=== PATIENT | male | born 1975 | race Caucasian/White ===

== ENCOUNTER 2019-01-21 16:24 | Emergency (ER) | payer OTHER ==
[2019-01-21 16:32] VITALS: BP 139/95; PULSE 88; TEMP 97.9; BMI 29.2
--- NOTE | 2019-01-21 16:39 | PDOC ---
Rapid Medical Evaluation Chief Complaint: Alcohol intoxication Time Seen by Provider: 01/21/19 16:30 Medical Evaluation: 01/21/19 16:31 Pt c/o: etoh intox, requesting detox, no other complaints, had sz related to etoh, stroke Pt on brief exam: intox, elevated BP, noted rt foot drop Pt ordered for: labs, urine, iv, meds Pt to proceed to the ED Discharge Disposition - Diagnosis Alcohol abuse - Referrals - Patient Instructions - Post Discharge Activity
[2019-01-21] MEDS ORDERED: FOLIC ACID INJECTION - 1 MG, THIAMINE HCL 100 MG, MULTIVIT INJECTION ADULT 10 ML in SOD... IVPB ONE (16:41)
[2019-01-21 17:10] LABS: BASO % 0.3 % (0-2.0); EOS % 1.8 % (0-4.5); HEMATOCRIT 45.3 % (35.4-49); HEMOGLOBIN 15.5 GM/dL (11.7-16.9); LYMPH % 40.4 % (8-40); MCH 31.5 pg (25.7-33.7); MCHC 34.2 g/dl (32.0-35.9); MEAN CELL VOLUME 91.9 fl (80-96); MEAN PLT VOLUME 6.3 fl (7.5-11.1); MONO % 9.1 % (3.8-10.2); NEUT % 48.4 % (42.8-82.8); PLATELET COUNT 166 K/MM3 (134-434); RBC 4.92 M/mm3 (4.00-5.60); RDW 13.6 % (11.9-15.9)
[2019-01-21 17:11] LABS: URINE APPEARANCE CLEAR; URINE BILIRUBIN NEGATIVE (NEGATIVE); URINE COLOR YELLOW; URINE GLUCOSE (UA) NEGATIVE (NEGATIVE); URINE KETONE NEGATIVE (NEGATIVE); URINE LEUK ESTERASE NEGATIVE (NEGATIVE); URINE NITRITE NEGATIVE (NEGATIVE); URINE PROTEIN NEGATIVE (NEGATIVE); URINE UROBILINOGEN 0.2 mg/dL (0.2-1.0)
[2019-01-21 17:25] LABS: COCAINE, UR NEGATIVE ng/ml (CUTOFF=300); METHADONE, UR NEGATIVE ng/ml (CUTOFF=300); OPIATES, URI NEGATIVE ng/ml (CUTOFF=300); PHENCYCLIDINE,URINE NEGATIVE ng/ml (CUTOFF=25); URINE AMPHETAMINES NEGATIVE ng/ml (CUTOFF=500); URINE BARBITURATES NEGATIVE ng/ml (CUTOFF=200); URINE BENZODIAZEPINES NEGATIVE ng/ml (CUTOFF=200)
[2019-01-21 17:39] LABS: ALBUMIN 4.1 g/dl (3.4-5.0); BILIRUBIN,TOTAL 0.6 mg/dL (0.2-1); BLOOD UREA NITROGEN 4.4 mg/dL (7-18); CALCIUM 8.3 mg/dL (8.5-10.1); CREATININE 0.7 mg/dL (0.55-1.3); MAGNESIUM 1.8 mg/dL (1.8-2.4); TOT PROT 8.7 g/dl (6.4-8.2)
--- NOTE | 2019-01-21 17:55 | PDOC ---
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 last drink this AM w/ 2 large cans of beer. endorses usually drinking 8 beers a day for the past 2+ years. Denies coingestion and other ilicit drug use. Endorses current anxiety and restlessness. Denies n/v, AVH, diaphoresis. No active SI Past History - Past Medical History Allergies/Adverse Reactions: Allergies Allergy/AdvReac Type Severity Reaction Status Date / Time No Known Allergies Allergy Verified 01/21/19 20:37 Home Medications: Ambulatory Orders NK [No Known Home Medication] 01/21/19 CVA: Yes COPD: No Seizures: Yes (alcohol related) - Psycho Social/Smoking Cessation Hx Smoking History: Unknown if ever smoked Information on smoking cessation initiated: Yes Hx Alcohol Use: Yes (8 beers daily) Drug/Substance Use Hx: No Review of Systems - Review of Systems Able to Perform ROS?: Yes Comments:: 01/23/19 07:30 ROS: HEENT: Denies headache, lightheadedness, dizziness, changes in vision / hearing , diplopia, blurry vision. Denies sore throat, rhinorrhea. RESP: Denies SOB CARD: Denies chest pain GI: Denies N / V / D, abdominal pain PSYCH: Endorses mild anxiety and restlessness. NEURO: Denies numbness, tingling, weakness. Is the patient limited Lao proficient: No *Physical Exam - Vital Signs Last Vital Signs Temp Pulse Resp BP Pulse Ox 97.9 F 88 19 139/95 99 01/21/19 16:30 01/21/19 16:30 01/21/19 16:30 01/21/19 16:30 01/21/19 16:30 - Physical Exam Comments: 01/23/19 07:30 PE: VSS GEN: NAD, AAOx3, etoh on breath HEENT: NC/AT, EOMI, PERRLA. CN II-XII grossly intact. No facial asymmetry. Normal voice. Supple neck w/ FROM. CV: S1/S2, RRR, no m/r/g LUNG: CTAB, no wheezes, crackles, rales, rhonchi. GI: soft, ndnt, +BS, no guarding, no rebound. EXTREMITIES: No LE edema. No obvious deformities of all extremities. SKIN: warm, dry, normal turgor PSYCH: normal mood and affect, cooperative NEURO: 5/5 UE LE strength b/l. sensation to touch equal and intact throughout. No ataxia on finger to nose. Note patient has residual right sided deficits from prior CVA. ED Treatment Course - LABORATORY CBC & Chemistry Diagram: 01/21/19 16:54 01/21/19 16:54 - ADDITIONAL ORDERS Additional order review: Laboratory Results 01/21/19 01/21/19 01/21/19 16:54 16:54 16:54 Sodium 141 Potassium 4.0 Chloride 107 Carbon Dioxide 26 Anion Gap 9 BUN 4.4 L Creatinine 0.7 Est GFR (CKD-EPI)AfAm 132.09 Est GFR (CKD-EPI)NonAf 113.97 Random Glucose 104 Calcium 8.3 L Magnesium 1.8 Total Bilirubin 0.6 AST 93 H ALT 81 H Alkaline Phosphatase 91 Total Protein 8.7 H Albumin 4.1 Lipase 179 Urine Color Yellow Urine Appearance Clear Urine pH 5.0 Ur Specific [place] 1.004 L Urine Protein Negative Urine Glucose (UA) Negative Urine Ketones Negative Urine Blood Negative Urine Nitrite Negative Urine Bilirubin Negative Urine Urobilinogen 0.2 Ur Leukocyte Esterase Negative Opiates Screen Negative Methadone Screen Negative Barbiturate Screen Negative Phencyclidine Screen Negative Ur Amphetamines Screen Negative MDMA (Ecstasy) Screen Negative Benzodiazepines Screen Negative Cocaine Screen Negative U Marijuana (THC) Screen Negative 01/21/19 16:54 RBC 4.92 MCV 91.9 MCHC 34.2 RDW 13.6 MPV 6.3 L Neutrophils % 48.4 Lymphocytes % 40.4 H Monocytes % 9.1 Eosinophils % 1.8 Basophils % 0.3 Medical Decision Making - Medical Decision Making 01/21/19 17:49 MDM: 43M h/o etoh withdrawal presenting for detox CIWA 4 @ initial exam - labs - librium - [facility] 01/21/19 18:12 [facility] Discharge - Discharge Information Problems reviewed: Yes Clinical Impression/Diagnosis: Alcohol abuse Condition: Stable Disposition: HOME - Admission No - Follow up/Referral - Patient Discharge Instructions Patient Printed Discharge Instructions: DI for Alcohol Abuse Additional Instructions: You were evaluated at the Emergency Department You will be transported to [facility] for detox Immediately return to the Emergency Department if you experience any of the following: - seizures, change in behavior / mentation - chest pain, shortness of breath - ANYTHING that concerns you - Post Discharge Activity
[2019-01-21] MEDS ORDERED: FOLIC ACID 1 MG TABLET (FP) PO ONE (17:57)
[2019-01-21] MEDS ORDERED: chlordiazePOXIDE HCL 25 MG CAPSULE PO ONE (17:57)
[2019-01-21] MEDS ORDERED: LORazepam 2 MG/ML SDV VIAL ONE (18:07)
[2019-01-21] MEDS ORDERED: THIAMINE HCL 100 MG TABLET (FP) PO ONE (18:19)
[2019-01-21] MEDS ORDERED: chlordiazePOXIDE HCL 25 MG CAPSULE ONE (18:41)
[2019-01-21] MEDS ORDERED: FOLIC ACID 1 MG TABLET (FP) ONE (18:42)
[2019-01-21] MEDS ORDERED: THIAMINE HCL 100 MG TABLET (FP) ONE (18:42)
--- NOTE | 2019-01-21 18:58 | PDOC ---
Documentation entered by Brian Gutierrez SCRIBE, acting as scribe for Linda Roy DO. Linda Roy DO: This documentation has been prepared by the Matt jerez Daniel, SCRIBE, under my direction and personally reviewed by me in its entirety. I confirm that the documentation accurately reflects all work, treatment, procedures, and medical decision making performed by me. Attending Attestation - Resident Resident Name: Venkata Bobo - ED Attending Attestation I have performed the following: I have examined & evaluated the patient, The case was reviewed & discussed with the resident, I agree w/resident's findings & plan, Exceptions are as noted - HPI HPI: 01/21/19 18:34 The patient is a 43 year old male with a past medical history of anxiety, alcoholic withdrawal seizures, and CVA (2017 with residual right sided weakness ) here today requesting alcohol detox. The patient states that his last drink was this morning and had 2 beers. He states that he feels anxious and restless. Patient denies headache, lightheadedness. Denies fever, chills. Denies chest pain, shortness of breath. Denies nausea, vomiting, diarrhea, abdominal pain. Allergies: NKA - Physicial Exam PE: 01/21/19 18:52 Constitutional: +appears intoxicated. Awake, alert, oriented. No acute distress. Head: Normocephalic. Atraumatic Eyes: PERRL. EOMI. Conjunctivae are not pale. ENT: Mucous membranes are moist and intact. Posterior pharynx without exudates or erythema. Uvula midline. Neck: Supple. Full ROM. No lymphadenopathy. Cardiovascular: Regular rate. Regular rhythm. S1, S2 regular. Distal pulses are 2+ and symmetric. Pulmonary/Chest: No evidence of respiratory distress. Clear to auscultation bilaterally No wheezing, rales or rhonchi. Abdominal: Soft and non-distended. There is no tenderness. No rebound, guarding or rigidity. No organomegaly. No palpable masses. Good bowel sounds. Back: No CVA tenderness. Musculoskeletal: No edema. No cyanosis. No clubbing. Full range of motion in all extremities. Nocalf tenderness. Radial/pedal pulses are intact and 2+ bilaterally Skin: +healing scab on chin. Skin is warm and dry. No petechiae. No purpura. Neurological: +right sided residual weakness with no focal deficits. Alert and oriented to person, place, and time. Cranial nerves II-XII are grossly intact. Normal speech. No sensory deficits. Psychiatric: Good eye contact. Normal interaction, affect and behavior. - Medical Decision Making 01/21/19 18:56 I, Dr. Linda Roy, DO, attest that this document has been prepared under my direction and personally reviewed by me in its entirety. I further attest, that it accurately reflects all work, treatment, procedures and medical decision -making performed by me. a/p: 43yo male with alcohol intox - last drink this AM requesting detox -denies falls or head injury -hx of etoh withdrawal seizures -pt brought in by a friend for etoh withdrawal -denies si/hi -currently intox -received [facility] prior to [facility] - no tongue fasciculations or hand tremors -labs from [facility] ordered -will call [facility] for poss detox 01/21/19 19:00 there is a bed available at [facility] will dc to [facility] with security for detox
== END 2019-01-21 20:45 | disposition home or self-care (01) ==
LOC: JER 16:24
PROC: 3E033NZ Introduction of Analgesics, Hypnotics, Sedatives into Peripheral Vein, Percutaneous Approach (ICD-10-PCS; principal; 2019-01-21)
DX: F10.10 Alcohol abuse, uncomplicated (principal); F41.9 Anxiety disorder, unspecified
CPT/HCPCS: 36415; 80053; 80307; 81003; 83690; 83735; 85025; 99283-25; J7030

== ENCOUNTER 2019-01-21 19:37 | Inpatient (IN) | payer OTHER ==
[2019-01-21 20:53] VITALS: BMI 28.7
--- NOTE | 2019-01-21 23:15 | HP ---
CIWA Score Nausea/Vomitin-No Nausea/No Vomiting Muscle Tremors: 4-Moderate,w/Arms Extend Anxiety: 3 Agitation: 3 Paroxysmal Sweats: No Perspiration Orientation: 2-Disoriented Date<2 days Tacttile Disturbances: 0-None Auditory Disturbances: 0-None Visual Disturbances: 2-Mild Sensitivity Headache: 0-None Present CIWA-Ar Total Score: 14 - Admission Criteria OASAS Guidelines: Admission for Medically Managed Detox: Requires at least one of the followin. CIWA greater than 12 2. Seizures within the past 24 hours 3. Delirium tremens within the past 24 hours 4. Hallucinations within the past 24 hours 5. Acute intervention needed for co occurring medical disorder 6. Acute intervention needed for co occurring psychiatric disorder 7. Severe withdrawal that cannot be handled at a lower level of care (continued vomiting, continued diarrhea, abnormal vital signs) requiring intravenous medication and/or fluids 8. Patient presents the following: CIWA greater than 12 Admission Criteria Met: Admission criteria met Admitting History and Physical - Smoking History Smoking history: Unknown if ever smoked - Alcohol/Substance Use Hx Alcohol Use: Yes (8 beers daily) Admission ROS [facility] Chief Complaint: i need to clean up Allergies/Adverse Reactions: Allergies Allergy/AdvReac Type Severity Reaction Status Date / Time No Known Allergies Allergy Verified 01/21/19 20:37 History of Present Illness: 43 yo male etoh began age 13 problematic 6 y ago has been abstinent with rehab x 3 mos max - Ebola screening Have you traveled outside of the country in the last 21 days: No (N) Have you had contact with anyone from an Ebola affected area: No Do you have a fever: No - Review of Systems Constitutional: Changes in sleep EENT: reports: No Symptoms Reported Respiratory: reports: No Symptoms reported Cardiac: reports: No Symptoms Reported GI: reports: No Symptoms Reported : reports: No Symptoms Reported Musculoskeletal: reports: No Symptoms Reported Integumentary: reports: Other (laceration to chin sp fall) Endocrine: reports: No Symptoms Reported Hematology: reports: No Symptoms Reported Psychiatric: reports: Anxious, Depressed Patient History - Patient Medical History Hx Chronic Obstructive Pulmonary Disease (COPD): No Hx Cancer: No Hx Cardiac Disorders: No Hx Congestive Heart Failure: No Hx Hypertension: No Hx Hypercholesterolemia: No HX Cerebrovascular Accident: Yes (18 mos ago etoh related sp fall) Hx Seizures: Yes (alcohol related last 1 mo ago) Hx Dementia: No Hx Diabetes: No Hx Gastrointestinal Disorders: No Hx Liver Disease: No Hx Genitourinary Disorders: No Hx Sexually Transmitted Disorders: No Hx Renal Disease (ESRD): No Hx Thyroid Disease: No Hx Human Immunodeficiency Virus (HIV): No Hx Hepatitis C: No Hx Depression: Yes Hx Suicide Attempt: Yes ("debatable") - Patient Surgical History Past Surgical History: Yes Other Surgical History: sp cva craniotomy - Smoking Cessation Smoking history: Current every day smoker Have you smoked in the past 12 months: Yes Aproximately how many cigarettes per day: 5 Hx Chewing Tobacco Use: No Initiated information on smoking cessation: Yes 'Breaking Loose' booklet given: 01/21/19 - Substances abused Alcohol Substance route: Oral Frequency: Daily Amount used: 10 beers/ somedays more Age of first use: 13 Date of last use: 01/21/19 Admission Physical Exam [facility] - Vital Signs Vital Signs: Vital Signs - 24 hr 01/21/19 20:36 Temperature 97.5 F L Pulse Rate 97 H Respiratory 16 Rate Blood Pressure 153/87 - Physical General Appearance: Yes: Moderate Distress, Alcohol on Breath, Irritable, Anxious HEENTM: Yes: EOMI, Other (2cm annular lesion left chin) Respiratory: Yes: Chest Non-Tender, Lungs Clear, Normal Breath Sounds Neck: Yes: Within Normal Limits, No masses,lesions,Nodules Cardiology: Yes: Within Normal Limits, Regular Rhythm, Regular Rate, S1, S2 Abdominal: Yes: Within Normal Limits, Normal Bowel Sounds, Non Tender Back: Yes: Normal Inspection Extremities: Yes: Normal Capillary Refill, Normal Inspection Neurological: Yes: inspector outside production II-XII NML intact, Fully Oriented, Alert, Motor Strength 5/5, Normal Mood/Affect Integumentary: Yes: Mottled - Diagnostic (1) Alcohol withdrawal Current Visit: Yes Status: Acute (2) Alcohol withdrawal seizure Current Visit: Yes Status: Acute (3) Cerebrovascular accident (CVA) Current Visit: Yes Status: Acute Qualifiers: CVA mechanism: unspecified Qualified Code(s): I63.9 - Cerebral infarction, unspecified Cleared for Admission S - Detox or Rehab [facility] Level of Care: Medically Managed Breathalyzer - Breathalyzer Breathalyzer: 0 Urine Drug Screen - Test Device Lot number: [id number] Expiration date: 09/28/20 - Control Is test valid?: Yes - Results Drug screen NEGATIVE: No Urine drug screen results: BZO-Benzodiazepines Inpatient Rehab Admission - Rehab Decision to Admit Inpatient rehab admission?: No
[2019-01-21] MEDS ORDERED: MAGNESIUM HYDROX 2400MG/30ML ORAL SUSPENSION 30 ML CUP PO PRN (23:25)
[2019-01-21] MEDS ORDERED: MAG HYDROX/AL HYDROX/SIMETH 30 ML UNIT-DOSE CUP PO PRN (23:25)
[2019-01-21] MEDS ORDERED: MENTHOL/PHENOL 1 EACH UD MM PRN (23:25)
[2019-01-21] MEDS ORDERED: hydrOXYzine PAMOATE 25 MG CAPSULE (FP) PO PRN (23:25)
[2019-01-21] MEDS ORDERED: IBUPROFEN 400 MG TABLET (FP) PO PRN (23:25)
[2019-01-21] MEDS ORDERED: chlordiazePOXIDE HCL 25 MG CAPSULE PO PRN (23:25)
[2019-01-21] MEDS ORDERED: BISMUTH SUBSALICYLATE 524 MG/30 ML UD PO PRN (23:25)
[2019-01-21] MEDS ORDERED: METHOCARBAMOL 500 MG TABLET PO PRN (23:25)
[2019-01-21] MEDS ORDERED: ACETAMINOPHEN 325 MG TABLET (FP) PO PRN ×2 (23:25)
[2019-01-21] MEDS ORDERED: MAGNESIUM CITRATE 300 ML BOTTLE PO PRN (23:25)
[2019-01-22] MEDS: chlordiazePOXIDE HCL 25 MG CAPSULE PO SCH ×5 (00:58→22:14)
[2019-01-22 10:03] LABS: HEMATOCRIT 38.8 % (35.4-49); HEMOGLOBIN 13.4 GM/dL (11.7-16.9); MCH 32.1 pg (25.7-33.7); MCHC 34.6 g/dl (32.0-35.9); MEAN CELL VOLUME 92.7 fl (80-96); MEAN PLT VOLUME 6.7 fl (7.5-11.1); PLATELET COUNT 100 K/MM3 (134-434); RBC 4.18 M/mm3 (4.00-5.60); RDW 13.7 % (11.9-15.9); WHITE BLOOD COUNT 3.3 K/mm3 (4.0-10.0)
[2019-01-22 10:07] LABS: ALBUMIN 3.3 g/dl (3.4-5.0); BILIRUBIN,TOTAL 0.5 mg/dL (0.2-1); BLOOD UREA NITROGEN 6.5 mg/dL (7-18); CREATININE 0.6 mg/dL (0.55-1.3); POTASSIUM 3.4 mmol/L (3.5-5.1); TOT PROT 7.1 g/dl (6.4-8.2)
[2019-01-22] MEDS: PRENATAL VITAMINS W/ FOLIC ACID TABLET (FP) PO SCH (10:29)
--- NOTE | 2019-01-22 11:29 | PN ---
[facility] CIWA - CIWA Score Nausea/Vomitin-Mild Nausea/No Vomiting Muscle Tremors: 3 Anxiety: 3 Agitation: 2 Paroxysmal Sweats: 2 Orientation: 0-Oriented Tacttile Disturbances: 1-Very Mild Itch/Numbness Auditory Disturbances: 1-Very Mild Visual Disturbances: 0-None Headache: 0-None Present CIWA-Ar Total Score: 13 S Progress Note (SOAP) Subjective: doing well with librium detox regimen sitting on bed eating breakfast no trouble swallowing no trouble chewing tolerate food and fluid well Objective: 01/22/19 11:27 Vital Signs Temperature 97.2 F L 01/22/19 09:21 Pulse Rate 74 01/22/19 09:21 Respiratory Rate 18 01/22/19 09:21 Blood Pressure 132/77 01/22/19 09:21 O2 Sat by Pulse Oximetry (%) Laboratory Last Values WBC 3.3 K/mm3 (4.0-10.0) L 01/22/19 08:15 RBC 4.18 M/mm3 (4.00-5.60) 01/22/19 08:15 Hgb 13.4 GM/dL (11.7-16.9) 01/22/19 08:15 Hct 38.8 % (35.4-49) 01/22/19 08:15 MCV 92.7 fl (80-96) 01/22/19 08:15 MCH 32.1 pg (25.7-33.7) 01/22/19 08:15 MCHC 34.6 g/dl (32.0-35.9) 01/22/19 08:15 RDW 13.7 % (11.9-15.9) 01/22/19 08:15 Plt Count 100 K/MM3 (134-434) L D 01/22/19 08:15 MPV 6.7 fl (7.5-11.1) L 01/22/19 08:15 Sodium 141 mmol/L (136-145) 01/22/19 08:15 Potassium 3.4 mmol/L (3.5-5.1) L 01/22/19 08:15 Chloride 106 mmol/L (98-107) 01/22/19 08:15 Carbon Dioxide 26 mmol/L (21-32) 01/22/19 08:15 Anion Gap 8 MMOL/L (8-16) 01/22/19 08:15 BUN 6.5 mg/dL (7-18) L 01/22/19 08:15 Creatinine 0.6 mg/dL (0.55-1.3) 01/22/19 08:15 Est GFR (CKD-EPI)AfAm 140.73 01/22/19 08:15 Est GFR (CKD-EPI)NonAf 121.43 01/22/19 08:15 Random Glucose 92 mg/dL (74-106) 01/22/19 08:15 Calcium 8.0 mg/dL (8.5-10.1) L 01/22/19 08:15 Total Bilirubin 0.5 mg/dL (0.2-1) 01/22/19 08:15 AST 60 U/L (15-37) H 01/22/19 08:15 ALT 62 U/L (13-61) H 01/22/19 08:15 Alkaline Phosphatase 74 U/L (45-117) 01/22/19 08:15 Total Protein 7.1 g/dl (6.4-8.2) 01/22/19 08:15 Albumin 3.3 g/dl (3.4-5.0) L 01/22/19 08:15 lab noted low K+ begin K+ supplement Assessment: 01/22/19 11:28 alcohol withdrawal sx Plan: continue librium detox regimen
[2019-01-22] MEDS: POTASSIUM CHLORIDE TABS 20 MEQ TABLET.ER (FP) PO SCH (13:04)
--- NOTE | 2019-01-22 13:37 | EKG ---
Test Reason : Blood Pressure : / mmHG Vent. Rate : 074 BPM Atrial Rate : 074 BPM P-R Int : 188 ms QRS Dur : 092 ms QT Int : 408 ms P-R-T Axes : 042 088 049 degrees QTc Int : 452 ms SINUS RHYTHM WITH PREMATURE ATRIAL COMPLEXES OTHERWISE NORMAL ECG NO PREVIOUS ECGS AVAILABLE Confirmed by ZAIRA MONTGOMERY, DELFIN ([id number]) on 01/22/2019 1:37:16 PM Referred By: Eulalio Liu Confirmed By:DELFIN MENESES MD
[2019-01-22] MEDS: THIAMINE HCL 100 MG TABLET (FP) PO SCH (22:14)
[2019-01-23] MEDS: chlordiazePOXIDE HCL 25 MG CAPSULE PO SCH ×4 (06:32→22:14)
[2019-01-23] MEDS: POTASSIUM CHLORIDE TABS 20 MEQ TABLET.ER (FP) PO SCH (10:14)
[2019-01-23] MEDS: PRENATAL VITAMINS W/ FOLIC ACID TABLET (FP) PO SCH (10:14)
--- NOTE | 2019-01-23 17:23 | PN ---
S CIWA - CIWA Score Nausea/Vomitin-No Nausea/No Vomiting Muscle Tremors: None Anxiety: 4-Mod. Anxious/Guarded Agitation: 2 Paroxysmal Sweats: No Perspiration Orientation: 0-Oriented Tacttile Disturbances: 2-Mild Itch/Numbness/Burn Auditory Disturbances: 1-Very Mild Visual Disturbances: 0-None Headache: 0-None Present CIWA-Ar Total Score: 9 BHS Progress Note (SOAP) Subjective: Anxious, Body Aches. Patient reports That Librium Detox regimen has been beneficial for him and that Current withdrawal Detox Symptoms in General Are Subsiding in Severity Objective: PATIENT A & O X 3, OBSERVED AMBULATING ON DETOX UNIT UNASSISTED. IN NO ACUTE DISTRESS. 01/23/19 17:24 Vital Signs Temperature 96.4 F L 01/23/19 15:00 Pulse Rate 61 01/23/19 15:00 Respiratory Rate 18 01/23/19 15:00 Blood Pressure 142/81 01/23/19 15:00 O2 Sat by Pulse Oximetry (%) Laboratory Tests 01/22/19 01/22/19 01/22/19 08:15 08:15 08:15 WBC 3.3 L RBC 4.18 Hgb 13.4 Hct 38.8 MCV 92.7 MCH 32.1 MCHC 34.6 RDW 13.7 Plt Count 100 L D MPV 6.7 L Sodium 141 Potassium 3.4 L Chloride 106 Carbon Dioxide 26 Anion Gap 8 BUN 6.5 L Creatinine 0.6 Est GFR (CKD-EPI)AfAm 140.73 Est GFR (CKD-EPI)NonAf 121.43 Random Glucose 92 Calcium 8.0 L Total Bilirubin 0.5 AST 60 H ALT 62 H Alkaline Phosphatase 74 Total Protein 7.1 Albumin 3.3 L RPR Titer Nonreactive LABS NOTED. Assessment: 01/23/19 17:24 WITHDRAWAL SYMPTOMS. Plan: CONTINUE DETOX.
[2019-01-23] MEDS: THIAMINE HCL 100 MG TABLET (FP) PO SCH (22:14)
[2019-01-24] MEDS ORDERED: chlordiazePOXIDE HCL 10 MG CAPSULE PO PRN
[2019-01-24] MEDS: chlordiazePOXIDE HCL 10 MG CAPSULE PO SCH ×4 (05:22→22:01)
[2019-01-24] MEDS: PRENATAL VITAMINS W/ FOLIC ACID TABLET (FP) PO SCH (10:26)
[2019-01-24] MEDS: POTASSIUM CHLORIDE TABS 20 MEQ TABLET.ER (FP) PO SCH (10:27)
--- NOTE | 2019-01-24 17:37 | PN ---
[facility] CIWA - CIWA Score Nausea/Vomitin-No Nausea/No Vomiting Muscle Tremors: None Anxiety: 4-Mod. Anxious/Guarded Agitation: 3 Paroxysmal Sweats: No Perspiration Orientation: 0-Oriented Tacttile Disturbances: 0-None Auditory Disturbances: 1-Very Mild Visual Disturbances: 0-None Headache: 0-None Present CIWA-Ar Total Score: 8 BHS Progress Note (SOAP) Subjective: Body Aches, Anxious. Patient reports That Current withdrawal Detox Symptoms in General Are Subsiding in Severity. Objective: 01/24/19 17:37 PATIENT A & O X 3, OBSERVED AMBULATING ON DETOX UNIT UNASSISTED. IN NO ACUTE DISTRESS. Vital Signs Temperature 98.5 F 01/24/19 09:57 Pulse Rate 643 H 01/24/19 09:57 Respiratory Rate 18 01/24/19 09:57 Blood Pressure 150/92 01/24/19 09:57 O2 Sat by Pulse Oximetry (%) Laboratory Tests 01/22/19 01/22/19 01/22/19 08:15 08:15 08:15 WBC 3.3 L RBC 4.18 Hgb 13.4 Hct 38.8 MCV 92.7 MCH 32.1 MCHC 34.6 RDW 13.7 Plt Count 100 L D MPV 6.7 L Sodium 141 Potassium 3.4 L Chloride 106 Carbon Dioxide 26 Anion Gap 8 BUN 6.5 L Creatinine 0.6 Est GFR (CKD-EPI)AfAm 140.73 Est GFR (CKD-EPI)NonAf 121.43 Random Glucose 92 Calcium 8.0 L Total Bilirubin 0.5 AST 60 H ALT 62 H Alkaline Phosphatase 74 Total Protein 7.1 Albumin 3.3 L RPR Titer Nonreactive LABS NOTED. Assessment: 01/24/19 17:41 WITHDRAWAL SYMPTOMS. LEUKOPENIA. THROMBOCYTOPENIA. ELEVATED AST LEVEL. ELEVATED ALT LEVEL. HYPOKALEMIA. HYPOCALCEMIA. Plan: CONTINUE DETOX. INCREASE DAILY PO WATER INTAKE. CONTINUE K-DUR PO FOR LOW POTASSIUM LEVEL NOTED ON DETOX ADMISSION LABORATORY ASSESSMENT. RE-CHECK POTASSIUM LEVEL TOMORROW AM TO SEE IF ANY CHANGE. OS-DEEPALI, 500 MG PO BID FOR LOW CALCIUM LEVEL NOTE DON DETOX ADMISSION LABORATORY ASSESSMENT.
[2019-01-24] MEDS: THIAMINE HCL 100 MG TABLET (FP) PO SCH (22:01)
[2019-01-24] MEDS: MELATONIN 5 MG TABLETS PO PRN (22:02)
[2019-01-24] MEDS: CALCIUM 500MG/VIT-D 200 UNITS COMBO TABLET (FP) PO SCH (22:25)
[2019-01-25] MEDS: chlordiazePOXIDE HCL 10 MG CAPSULE PO SCH ×2 (05:57→17:19)
[2019-01-25] MEDS: PRENATAL VITAMINS W/ FOLIC ACID TABLET (FP) PO SCH (10:43)
[2019-01-25] MEDS: POTASSIUM CHLORIDE TABS 20 MEQ TABLET.ER (FP) PO SCH (10:43)
[2019-01-25] MEDS: CALCIUM 500MG/VIT-D 200 UNITS COMBO TABLET (FP) PO SCH ×2 (10:43→22:33)
--- NOTE | 2019-01-25 13:54 | PN ---
S CIWA - CIWA Score Nausea/Vomitin-No Nausea/No Vomiting Muscle Tremors: 1-None Visible, but Williams Anxiety: 2 Agitation: 1-Slight > Activity Paroxysmal Sweats: No Perspiration Orientation: 0-Oriented Tacttile Disturbances: 0-None Auditory Disturbances: 0-None Visual Disturbances: 0-None Headache: 0-None Present CIWA-Ar Total Score: 4 BHS Progress Note (SOAP) Subjective: 43 years old male admitted on 01/21/19 for alcohol withdrawal sx management treated with librium detox regimen patient tolerate well at this time less tremor mild anxiety sleep better at night Objective: 01/25/19 13:54 Vital Signs Temperature 97.6 F 01/25/19 13:06 Pulse Rate 71 01/25/19 13:06 Respiratory Rate 18 01/25/19 13:06 Blood Pressure 131/82 01/25/19 13:06 O2 Sat by Pulse Oximetry (%) Laboratory Last Values WBC 3.3 K/mm3 (4.0-10.0) L 01/22/19 08:15 RBC 4.18 M/mm3 (4.00-5.60) 01/22/19 08:15 Hgb 13.4 GM/dL (11.7-16.9) 01/22/19 08:15 Hct 38.8 % (35.4-49) 01/22/19 08:15 MCV 92.7 fl (80-96) 01/22/19 08:15 MCH 32.1 pg (25.7-33.7) 01/22/19 08:15 MCHC 34.6 g/dl (32.0-35.9) 01/22/19 08:15 RDW 13.7 % (11.9-15.9) 01/22/19 08:15 Plt Count 100 K/MM3 (134-434) L D 01/22/19 08:15 MPV 6.7 fl (7.5-11.1) L 01/22/19 08:15 Sodium 141 mmol/L (136-145) 01/22/19 08:15 Potassium 3.7 mmol/L (3.5-5.1) 01/25/19 07:40 Chloride 106 mmol/L (98-107) 01/22/19 08:15 Carbon Dioxide 26 mmol/L (21-32) 01/22/19 08:15 Anion Gap 8 MMOL/L (8-16) 01/22/19 08:15 BUN 6.5 mg/dL (7-18) L 01/22/19 08:15 Creatinine 0.6 mg/dL (0.55-1.3) 01/22/19 08:15 Est GFR (CKD-EPI)AfAm 140.73 01/22/19 08:15 Est GFR (CKD-EPI)NonAf 121.43 01/22/19 08:15 Random Glucose 92 mg/dL (74-106) 01/22/19 08:15 Calcium 8.0 mg/dL (8.5-10.1) L 01/22/19 08:15 Total Bilirubin 0.5 mg/dL (0.2-1) 01/22/19 08:15 AST 60 U/L (15-37) H 01/22/19 08:15 ALT 62 U/L (13-61) H 01/22/19 08:15 Alkaline Phosphatase 74 U/L (45-117) 01/22/19 08:15 Total Protein 7.1 g/dl (6.4-8.2) 01/22/19 08:15 Albumin 3.3 g/dl (3.4-5.0) L 01/22/19 08:15 RPR Titer Nonreactive (NONREACTIVE) 01/22/19 08:15 lab noted Assessment: 01/25/19 13:55 alcohol withdrawal sx Plan: continue librium detox regimen
[2019-01-25] MEDS: THIAMINE HCL 100 MG TABLET (FP) PO SCH (22:32)
[2019-01-25] MEDS: MELATONIN 5 MG TABLETS PO PRN (22:34)
[2019-01-26] MEDS ORDERED: chlordiazePOXIDE HCL 10 MG CAPSULE PO ONE (05:00)
[2019-01-26 09:21] VITALS: BP 118/80; PULSE 90; TEMP 96.5
[2019-01-26] MEDS: CALCIUM 500MG/VIT-D 200 UNITS COMBO TABLET (FP) PO SCH (10:31)
[2019-01-26] MEDS: PRENATAL VITAMINS W/ FOLIC ACID TABLET (FP) PO SCH (10:31)
[2019-01-26] MEDS: POTASSIUM CHLORIDE TABS 20 MEQ TABLET.ER (FP) PO SCH (10:32)
--- NOTE | 2019-01-26 15:14 | DS ---
[facility] Detox Discharge Summary Admission Date: 01/21/19 Discharge Date: 01/26/19 - History Present History: Alcohol Dependence Additional Comments: 43 years old male admitted on 01/21/19 for alcohol withdrawal sx management treated with librium detox regimen patient is alert oriented x 3 respiratory clear lung bilaterally on auscultation abdomen soft no rebound tenderness skin warm dry - Physical Exam Results Vital Signs: Vital Signs Temperature 96.5 F L 01/26/19 09:20 Pulse Rate 90 01/26/19 09:20 Respiratory Rate 18 01/26/19 09:20 Blood Pressure 118/80 01/26/19 09:20 O2 Sat by Pulse Oximetry (%) Pertinent Admission Physical Exam Findings: alcohol withdrawal sx Laboratory Last Values WBC 3.3 K/mm3 (4.0-10.0) L 01/22/19 08:15 RBC 4.18 M/mm3 (4.00-5.60) 01/22/19 08:15 Hgb 13.4 GM/dL (11.7-16.9) 01/22/19 08:15 Hct 38.8 % (35.4-49) 01/22/19 08:15 MCV 92.7 fl (80-96) 01/22/19 08:15 MCH 32.1 pg (25.7-33.7) 01/22/19 08:15 MCHC 34.6 g/dl (32.0-35.9) 01/22/19 08:15 RDW 13.7 % (11.9-15.9) 01/22/19 08:15 Plt Count 100 K/MM3 (134-434) L D 01/22/19 08:15 MPV 6.7 fl (7.5-11.1) L 01/22/19 08:15 Sodium 141 mmol/L (136-145) 01/22/19 08:15 Potassium 3.7 mmol/L (3.5-5.1) 01/25/19 07:40 Chloride 106 mmol/L (98-107) 01/22/19 08:15 Carbon Dioxide 26 mmol/L (21-32) 01/22/19 08:15 Anion Gap 8 MMOL/L (8-16) 01/22/19 08:15 BUN 6.5 mg/dL (7-18) L 01/22/19 08:15 Creatinine 0.6 mg/dL (0.55-1.3) 01/22/19 08:15 Est GFR (CKD-EPI)AfAm 140.73 01/22/19 08:15 Est GFR (CKD-EPI)NonAf 121.43 01/22/19 08:15 Random Glucose 92 mg/dL (74-106) 01/22/19 08:15 Calcium 8.0 mg/dL (8.5-10.1) L 01/22/19 08:15 Total Bilirubin 0.5 mg/dL (0.2-1) 01/22/19 08:15 AST 60 U/L (15-37) H 01/22/19 08:15 ALT 62 U/L (13-61) H 01/22/19 08:15 Alkaline Phosphatase 74 U/L (45-117) 01/22/19 08:15 Total Protein 7.1 g/dl (6.4-8.2) 01/22/19 08:15 Albumin 3.3 g/dl (3.4-5.0) L 01/22/19 08:15 RPR Titer Nonreactive (NONREACTIVE) 01/22/19 08:15 lab noted - Treatment Hospital Course: Detox Protocol Followed, Detoxed Safely, Responded well, Discharged Condition Good, Rehab Referral Accepted Patient has Accepted [facility] - Medication Discharge Medications: Ambulatory Orders NK [No Known Home Medication] 01/21/19 - Diagnosis (1) Alcohol withdrawal Status: Acute Qualifiers: Complication of substance-induced condition: uncomplicated Qualified Code(s ): F10.230 - Alcohol dependence with withdrawal, uncomplicated - AMA Did Patient Leave Against Medical Advice: No CIWA Score - CIWA Score Nausea/Vomitin-No Nausea/No Vomiting Muscle Tremors: None Anxiety: 1-Mildly Anxious Agitation: 0-Normal Activity Paroxysmal Sweats: No Perspiration Orientation: 0-Oriented Tacttile Disturbances: 0-None Auditory Disturbances: 0-None Visual Disturbances: 0-None Headache: 0-None Present CIWA-Ar Total Score: 1
== END 2019-01-26 13:12 | disposition other institution (70) | DRG 897 ==
LOC: YASAS 19:37 → UNDOADMIN 23:44 → Y3N 23:44
PROVIDERS: ADMIT Allergy & Immunology; ATTEND Allergy & Immunology
PROC: HZ2ZZZZ Detoxification Services for Substance Abuse Treatment (ICD-10-PCS; principal; 2019-01-21)
DX: F10.230 Alcohol dependence with withdrawal, uncomplicated (principal); F17.210 Nicotine dependence, cigarettes, uncomplicated; D72.819 Decreased white blood cell count, unspecified; D69.6 Thrombocytopenia, unspecified; R74.0 Nonspecific elevation of levels of transaminase and lactic acid dehydrogenase [LDH]; E87.6 Hypokalemia; E83.52 Hypercalcemia; Z86.73 Personal history of transient ischemic attack (TIA), and cerebral infarction without residual deficits; Z86.69 Personal history of other diseases of the nervous system and sense organs
CPT/HCPCS: 36415; 80053; 84132; 85027; 86593; 93005; 93010

== ENCOUNTER 2019-01-26 13:26 | Inpatient (IN) | payer OTHER ==
[2019-01-26] MEDS ORDERED: guaiFENesin 200 MG/10 ML 10 ML UNIT-DOSE CUPS PO PRN (15:18)
[2019-01-26] MEDS ORDERED: MAGNESIUM CITRATE 300 ML BOTTLE PO PRN (15:18)
[2019-01-26] MEDS ORDERED: P-EPHED 60MG/TRIPROLIDI 2.5MG TABLET PO PRN (15:18)
[2019-01-26] MEDS ORDERED: MENTHOL/PHENOL 1 EACH UD MM PRN (15:18)
[2019-01-26] MEDS ORDERED: IBUPROFEN 400 MG TABLET (FP) PO PRN (15:18)
[2019-01-26] MEDS ORDERED: ACETAMINOPHEN 325 MG TABLET (FP) PO PRN (15:18)
[2019-01-26] MEDS ORDERED: MAGNESIUM HYDROX 2400MG/30ML ORAL SUSPENSION 30 ML CUP PO PRN (15:18)
--- NOTE | 2019-01-26 15:18 | HP ---
[facility] Rehab Assess/Revision - Admission History Admitted to Rehab from: [facility] Date of Admission to Rehab: 01/26/19 - Vital signs Vital Signs: Vital Signs Period Temp Pulse Resp BP Sys/Guzman Pulse Ox Last 24 Hr 97.9 F 66 18 144/80 - Findings Detox History & Physical reviewed: Yes Concur with findings: Yes Comments/Additional Findings: transferred from detox to rehab admission as per protocol Inpatient Rehab Admission - Rehab Decision to Admit Inpatient rehab admission?: Yes - Initial Determination Are CD services needed?: Yes Free of communicable disease: Yes Not in need of hospitalization: Yes - Rehab Admission Criteria Previous failed treatment: Yes Poor recovery environment: Yes Comorbidities: Yes Lacks judgement: Yes Patient is meeting Inpatient Rehab admission criteria:: Yes
[2019-01-26] MEDS: MAG HYDROX/AL HYDROX/SIMETH 30 ML UNIT-DOSE CUP PO PRN (18:58)
[2019-01-26] MEDS: THIAMINE HCL 100 MG TABLET (FP) PO SCH (21:10)
[2019-01-26] MEDS: MELATONIN 5 MG TABLETS PO PRN (21:10)
[2019-01-27] MEDS: MAG HYDROX/AL HYDROX/SIMETH 30 ML UNIT-DOSE CUP PO PRN ×2 (04:38→21:37)
[2019-01-27] MEDS: LOPERAMIDE HCL 2 MG CAPSULE PO PRN ×2 (05:51→23:22)
[2019-01-27] MEDS: PRENATAL VITAMINS W/ FOLIC ACID TABLET (FP) PO SCH (09:38)
[2019-01-27] MEDS: MELATONIN 5 MG TABLETS PO PRN (21:37)
[2019-01-27] MEDS: THIAMINE HCL 100 MG TABLET (FP) PO SCH (21:37)
[2019-01-28] MEDS: LOPERAMIDE HCL 2 MG CAPSULE PO PRN (06:13)
[2019-01-28] MEDS ORDERED: BISMUTH SUBSALICYLATE 262 MG/15 ML BTL PO PRN (08:59)
[2019-01-28] MEDS: PRENATAL VITAMINS W/ FOLIC ACID TABLET (FP) PO SCH (09:31)
[2019-01-28] MEDS: hydrOXYzine PAMOATE 25 MG CAPSULE (FP) PO PRN ×2 (15:22→21:12)
[2019-01-28] MEDS: THIAMINE HCL 100 MG TABLET (FP) PO SCH (21:11)
[2019-01-28] MEDS: MELATONIN 5 MG TABLETS PO PRN (21:11)
[2019-01-29] MEDS: hydrOXYzine PAMOATE 25 MG CAPSULE (FP) PO PRN ×5 (06:01→23:32)
[2019-01-29] MEDS: PRENATAL VITAMINS W/ FOLIC ACID TABLET (FP) PO SCH (10:33)
[2019-01-29] MEDS: THIAMINE HCL 100 MG TABLET (FP) PO SCH (21:44)
[2019-01-30] MEDS: hydrOXYzine PAMOATE 25 MG CAPSULE (FP) PO PRN ×4 (06:03→21:10)
[2019-01-30] MEDS: PRENATAL VITAMINS W/ FOLIC ACID TABLET (FP) PO SCH (10:20)
[2019-01-30] MEDS: MELATONIN 5 MG TABLETS PO PRN (21:09)
[2019-01-30] MEDS: THIAMINE HCL 100 MG TABLET (FP) PO SCH (21:09)
[2019-01-31] MEDS: hydrOXYzine PAMOATE 25 MG CAPSULE (FP) PO PRN ×4 (06:10→18:45)
[2019-01-31] MEDS: PRENATAL VITAMINS W/ FOLIC ACID TABLET (FP) PO SCH (10:24)
[2019-01-31] MEDS: THIAMINE HCL 100 MG TABLET (FP) PO SCH (21:32)
[2019-01-31] MEDS: MELATONIN 5 MG TABLETS PO PRN (21:33)
[2019-02-01] MEDS: hydrOXYzine PAMOATE 25 MG CAPSULE (FP) PO PRN ×3 (05:28→14:41)
[2019-02-01] MEDS: PRENATAL VITAMINS W/ FOLIC ACID TABLET (FP) PO SCH (10:04)
[2019-02-01] MEDS: THIAMINE HCL 100 MG TABLET (FP) PO SCH (21:10)
[2019-02-01] MEDS: MELATONIN 5 MG TABLETS PO PRN (21:10)
[2019-02-02] MEDS: hydrOXYzine PAMOATE 25 MG CAPSULE (FP) PO PRN ×3 (06:21→18:50)
[2019-02-02] MEDS: PRENATAL VITAMINS W/ FOLIC ACID TABLET (FP) PO SCH (10:34)
--- NOTE | 2019-02-02 12:09 | PN ---
[facility] Progress Note Note: Patient scheduled for discharge tomorrow morning. Requested to leave by 7am. Patient completed rehab for ETOH dependence and remains motivated to maintain sobriety. Patient is medically stable at this time and denies SI/HI. Patient is homeless and is scheduled to follow up with [facility] tomorrow morning. Aftercare, 12 steps/AA to be done as outpatient and patient encourage to complete group meetings to prevent relapse. Ambulatory Orders NK [No Known Home Medication] 01/21/19 Vital Signs Temperature 97.2 F L 02/02/19 07:10 Pulse Rate 71 02/02/19 07:10 Respiratory Rate 18 02/02/19 07:10 Blood Pressure 120/78 02/02/19 07:10 O2 Sat by Pulse Oximetry (%) ROS: denies etoh cravings, shakes, headache and SI/HI PE: alert and oriented x 3 skin + facial flushing, warm and dry +perrla, eoms intact bl car s1s2, rrr, no murmurs or gallops resp cta bl, neg wheezing , rales ext no visible tremors, amb ad willis no edema A/P: ETOH dependence Scheduled for discharge in am
[2019-02-02] MEDS ORDERED: HYDROCORTISONE 0.5% TOPICAL CREAM 30 GM TUBE TP SCH (15:15)
[2019-02-02] MEDS: MELATONIN 5 MG TABLETS PO PRN (21:48)
[2019-02-02] MEDS: THIAMINE HCL 100 MG TABLET (FP) PO SCH (21:48)
[2019-02-03] MEDS: hydrOXYzine PAMOATE 25 MG CAPSULE (FP) PO PRN (05:57)
[2019-02-03 07:15] VITALS: BP 126/78; PULSE 74; TEMP 97.6
== END 2019-02-03 07:00 | disposition home or self-care (01) | DRG 895 ==
LOC: YASAS 13:26 → Y3W 13:30
PROVIDERS: ADMIT Neuromusculoskeletal Medicine & OMM; ATTEND Neuromusculoskeletal Medicine & OMM
PROC: HZ42ZZZ Group Counseling for Substance Abuse Treatment, Cognitive-Behavioral (ICD-10-PCS; principal; 2019-01-26)
DX: F10.20 Alcohol dependence, uncomplicated (principal); F17.210 Nicotine dependence, cigarettes, uncomplicated; Z86.69 Personal history of other diseases of the nervous system and sense organs; Z86.73 Personal history of transient ischemic attack (TIA), and cerebral infarction without residual deficits; Z59.0 Homelessness